=== PATIENT | female | born 1975 | race Caucasian/White ===

== ENCOUNTER → 2023-01-11 13:44 | Outpatient (CLI) | payer OTHER, SELFPAY ==
--- NOTE | 2023-01-11 13:46 | DI.RAD.S_ITS ---
PROCEDURE: XR ANKLE RT MIN 3V INDICATIONS: rolled ankle, non weightbearing, 5th prox meta/tarsal tender TECHNIQUE: 3 views of the ankle were acquired. COMPARISON: None. FINDINGS: Bones: No fractures or dislocations. Ankle mortise is normally aligned. No suspicious bony lesions. Soft tissues: No tibiotalar joint effusion. Achilles tendon appears normal. IMPRESSION: No fracture. No osseous lesion. If symptoms and/or clinical suspicion for pathology persists, further assessment with repeat radiographs (7-10 days) or advanced imaging (e.g. CT, MRI or bone scan) should be considered. Dictated by: Noemy Falcon MD, PhD on 01/11/2023 at 14:35 Approved by: Noemy Falcon MD, PhD on 01/11/2023 at 14:35
--- NOTE | 2023-01-11 13:46 | DI.RAD.S_ITS ---
PROCEDURE: XR FOOT RT MIN 3V INDICATIONS: rolled ankle, non weightbearing, 5th prox meta/tarsal tender TECHNIQUE: 3 views of the foot were acquired. COMPARISON: None. FINDINGS: Bones: No fractures or dislocations. No suspicious bony lesions. Soft tissues: No tibiotalar joint effusion. Achilles tendon appears normal. IMPRESSION: No fracture. No osseous lesion. If symptoms and/or clinical suspicion for pathology persists, further assessment with repeat radiographs (7-10 days) or advanced imaging (e.g. CT, MRI or bone scan) should be considered. Dictated by: Noemy Falcon MD, PhD on 01/11/2023 at 14:35 Approved by: Noemy Falcon MD, PhD on 01/11/2023 at 14:36
== END ==
PROVIDERS: Referring Provider Student in an Organized Health Care Education/Training Program; Visit Provider Student in an Organized Health Care Education/Training Program
DX: M79.671 Pain in right foot (principal); M25.579 Pain in unspecified ankle and joints of unspecified foot
CPT/HCPCS: 73610; 73630